=== PATIENT | female | born 1955 | race Hispanic/Latino ===

== ENCOUNTER 2022-08-28 14:32 | Emergency (ER) | payer BC, OTHER ==
[~2022-08-28] VITALS: Ht 167.6 cm; Wt 68.0 kg
[2022-08-28 15:06] VITALS: BP 138/74
[2022-08-28 16:33] LABS: BASOPHILS % (AUTO) 0.7 % (0.0-5.0); EOSINOPHILS % (AUTO) 1.2 % (0.0-8.0); HEMATOCRIT 34.5 % (36-48); LYMPHOCYTES % (AUTO) 23.4 % (21.0-51.0); MEAN CORPUSCULAR HEMOGLOBIN 29.7 pg (27.0-33.0); MEAN CORPUSCULAR HGB CONC 32.2 g/dL (32.0-36.0); MEAN CORPUSCULAR VOLUME 92.2 fL (79-99); MONOCYTES % (AUTO) 6.4 % (3.0-13.0); PLATELET COUNT (AUTO) 226 K/uL (130-400); RED BLOOD CELL COUNT(AUTO) 3.74 MIL/uL (4.00-5.50); RED CELL DISTRIBUTION WIDTH 13.8 % (11.0-15.5); WHITE BLOOD COUNT (AUTO) 7.6 K/uL (4.8-10.8)
[2022-08-28 16:49] LABS: ALBUMIN 3.9 g/dL (3.5-5.0); CREATININE 2.8 mg/dL (0.5-1.5); TOTAL PROTEIN, SERUM 8.4 g/dL (6.0-8.3)
[2022-08-28 16:53] LABS: POTASSIUM 2.8 mmol/L (3.5-5.1)
[2022-08-28] MEDS ORDERED: BENZONATATE 100 MG CAPSULE PO ONE (17:00)
[2022-08-28] MEDS ORDERED: ALBUTEROL 0.083% 2.5 MG/3 ML INH IH ONE (17:00)
[2022-08-28] MEDS ORDERED: POTASSIUM BICARB/CIT AC 25 MEQ TABLET.EFF PO ONE (17:00)
[2022-08-28 17:05] LABS: B-TYPE NATRIURETIC PEPTIDE 44 pg/mL (0-100)
[2022-08-28] MEDS ORDERED: [UNRECOGNIZED DRUG - OTHER] IV SCH (17:30)
[2022-08-28] MEDS ORDERED: FOLIC ACID IV SCH (17:30)
[2022-08-28] MEDS ORDERED: THIAMINE HCL IV SCH (17:30)
[2022-08-28] MEDS ORDERED: M V I IV SCH (17:30)
[2022-08-28] MEDS ORDERED: AUD IH (18:08)
[2022-08-28] MEDS ORDERED: BENZ-39 PO (18:08)
== END 2022-08-28 20:31 | disposition home or self-care (01) ==
LOC: EDH 14:32
DX: J20.8 Acute bronchitis due to other specified organisms (principal); E87.6 Hypokalemia; I10 Essential (primary) hypertension; Z85.3 Personal history of malignant neoplasm of breast; Z88.8 Allergy status to other drugs, medicaments and biological substances
CPT/HCPCS: 99285; 96365; 71045; 83735; 84484; 80053; 83880; 85025; 36415; 93005; 94640; J3411; J3490; J3480

== ENCOUNTER → 2024-03-08 | Outpatient (CLI) | payer OTHER ==
[~2024-03-08] MED LIST: AEC81 PO; AMLO2.5T4 PO; CHOL200074 PO; FOLI0.8T22 PO; LETR2.5T7 PO; OMEP40CA21 PO; ONDA-243 PO; PRAM0.129 PO; ROSU10TA72 PO
--- NOTE | 2024-03-08 10:59 | HMCIMG ---
CT CORONARY CALCIFICATION SCORING: Anatomic images were reviewed. The calcium score is being generated and reported separately. This report is for the visualized anatomy only. Visualized portions of the lungs are clear. Hilar and mediastinal structures appear normal. Osseous structures are unremarkable. Impression: 1. Negative noncardiac anatomic findings. 2. The calcium score is 1391.5 consistent with a large degree of calcified plaque. This is 99th percentile for a patient this age.+ CT was performed with one or more following dose reduction techniques: automated exposure control, adjustment of the mA and kv according to patient's size, or use of a iterative reconstruction technique.
== END | disposition home or self-care (01) ==
LOC: RAH 09:34
PROVIDERS: ATTEND Internal Medicine Interventional Cardiology
DX: Z13.6 Encounter for screening for cardiovascular disorders (principal)
CPT/HCPCS: 75571

== ENCOUNTER 2024-06-08 10:44 | Day surgery (SDC) | payer OTHER ==
[2024-06-06 14:26] LABS: BASOPHILS # (AUTO) 0.06 K/uL (0.00-0.20); BASOPHILS % (AUTO) 0.6 % (0.0-5.0); EOSINOPHILS # (AUTO) 0.12 K/uL (0.00-0.70); EOSINOPHILS % (AUTO) 1.3 % (0.0-8.0); HEMATOCRIT 40.6 % (36-48); IMMATURE GRANULOCYTE ABSOLUTE 0.03 K/uL (0-1); LYMPHOCYTES # (AUTO) 1.9 K/uL (1.0-4.8); LYMPHOCYTES % (AUTO) 20.8 % (21.0-51.0); MEAN CORPUSCULAR HEMOGLOBIN 29.9 pg (27.0-33.0); MEAN CORPUSCULAR VOLUME 93.3 fL (79-99); MONOCYTES # (AUTO) 0.5 K/uL (0.1-1.0); MONOCYTES % (AUTO) 5.8 % (3.0-13.0); NEUTROPHILS # (AUTO) 6.6 K/uL (1.8-7.7); NEUTROPHILS % (AUTO) 71.2 % (40.0-77.0); PLATELET COUNT (AUTO) 246 K/uL (130-400); RED BLOOD CELL COUNT(AUTO) 4.35 MIL/uL (4.00-5.50); RED CELL DISTRIBUTION WIDTH 14.3 % (11.0-15.5); WHITE BLOOD COUNT (AUTO) 9.3 K/uL (4.8-10.8)
[2024-06-06 14:27] VITALS: BP 156/84; PULSE 57; RESP 16; TEMP 97.9
[2024-06-06 14:39] LABS: INR 1.01 (0.85-1.15); PROTHROMBIN TIME 10.7 SEC (9.6-11.6)
[2024-06-06 14:40] LABS: PARTIAL THROMBOPLASTIN TIME 27.2 SEC (26.3-35.5)
[2024-06-06 14:58] LABS: CREATININE 1.5 mg/dL (0.5-1.0); POTASSIUM 3.4 mmol/L (3.5-5.1)
--- NOTE | 2024-06-06 15:04 | HMCIMG ---
Exam Type: CHEST 1VW Clinical Information: pre-op Comparison: None Findings: Right permacath noted in place. The lungs are clear of infiltrates. The heart is large in size. The bony and soft tissue structures of the chest are unremarkable. Large hiatal hernia projects behind the cardiac silhouette. Impression: Clear lungs.
[2024-06-06 15:15] LABS: B-TYPE NATRIURETIC PEPTIDE 30 pg/mL (0-100)
--- NOTE | 2024-06-06 15:57 | EKG ---
[facility] Test Date: 2024-06-06 Test Time: 14:13:18 Pat Name: MARYCARMEN MCCARTNEY Department[facility] Room: Gender: F Hog Raiser: [id number] : 1955 Requested By: EZE AGUILERA Order Number: [id number] Reading MD: Aly Esqueda Measurements Intervals Lynn Rate: 61 P: 39 NC: 144 QRS: 39 QRSD: 99 T: 68 QT: 430 QTc: 430 Interpretive Statements Sinus rhythm Atrial premature complex Compared to ECG 10/20/2023 14:07:06 Atrial premature complex(es) now present Sinus bradycardia no longer present Electronically Signed On 06-07-2024 23:29:06 CDT by Aly Esqueda Please click the below link to view image of tracing.
[~2024-06-08] VITALS: Ht 167.6 cm; Wt 74.1 kg
[~2024-06-08 10:44] MED LIST changes: +ALBU2.5V2 IH; +ALBU90AE IH; -LETR2.5T7 PO; -ONDA-243 PO; -PRAM0.129 PO; -ROSU10TA72 PO; +ROSU20TA98 PO
[2024-06-08 10:55] VITALS: BP 152/88; PULSE 68; RESP 16; TEMP 98.1
[2024-06-08] MEDS: 0.9%NACL 1000ML 1,000 ML IV SCH (11:26)
[2024-06-08] MEDS ORDERED: HEParin-NS 1,000 UNIT/500 ML 500 ML IV ONE (12:37)
[2024-06-08] MEDS ORDERED: LIDOCAINE HCL 400MG/20ML VIAL ONE (12:37)
[2024-06-08] MEDS ORDERED: FENTanyl CITRate PF 50 MCG/1 ML 2ML VIAL ONE (14:05)
[2024-06-08] MEDS ORDERED: MIDAZOLAM HCL 1 MG/ML 2ML VIAL ONE (14:05)
[2024-06-08 14:20] VITALS: BP 172/80; PULSE 56; RESP 11; TEMP 97.4
--- NOTE | 2024-06-08 14:20 | NUR ---
DRESSING: DRESSING TO LEFT LOWER CHEST DRY/INTACT WITH NO ACTIVE BLEEDING PRESENT. NO REDNESS/SWELLING NOTED TO SURROUNDING AREA.
[2024-06-08 14:35] VITALS: BP 168/88; PULSE 68; RESP 14
[2024-06-08 14:50] VITALS: BP 179/100; PULSE 64; RESP 13
--- NOTE | 2024-06-08 14:51 | PR ---
PROCEDURE: Removal of implantable loop recorder. INDICATIONS: This is a 68-year-old woman who has a history of dysrhythmia, she had an implantable loop recorder placed for further evaluation. The device has reached end of life parameters and has been removed at this time. She has no further problems with dysrhythmia and will not be replaced. DESCRIPTION OF PROCEDURE: After informed consent was done, the patient was prepped and draped in the usual fashion. The device was found to be quite deep. It was identified with fluoroscopic guidance. Once located, incision was made at the proximal end of the device. Blunt dissection was carried down to device. Device was grabbed with forceps and removed in its entirety without further difficulty. The wound was then sealed using no stitch technique with sealant. The patient tolerated the procedure well. There were no complications. TID: [id number] RECEIPT: [id number]
[2024-06-08 15:05] VITALS: BP 180/90; PULSE 64; RESP 14; TEMP 97.4
--- NOTE | 2024-06-08 15:05 | NUR ---
dressing: dressing to left lower chest remained dry/intact with no active bleeding present. no redness/swelling noted to surrounding area .
== END 2024-06-08 15:07 | disposition home or self-care (01) ==
LOC: DAH 10:44
PROVIDERS: ATTEND Internal Medicine Interventional Cardiology
DX: Z45.09 Encounter for adjustment and management of other cardiac device (principal); R94.39 Abnormal result of other cardiovascular function study; R00.0 Tachycardia, unspecified; I10 Essential (primary) hypertension; I35.0 Nonrheumatic aortic (valve) stenosis; I65.29 Occlusion and stenosis of unspecified carotid artery; I25.10 Atherosclerotic heart disease of native coronary artery without angina pectoris; E78.2 Mixed hyperlipidemia; G60.8 Other hereditary and idiopathic neuropathies; E66.9 Obesity, unspecified; M79.661 Pain in right lower leg; M79.662 Pain in left lower leg; Z95.818 Presence of other cardiac implants and grafts; Z71.3 Dietary counseling and surveillance; Z71.82 Exercise counseling; Z68.26 Body mass index [BMI] 26.0-26.9, adult; Z79.899 Other long term (current) drug therapy; Z79.82 Long term (current) use of aspirin; Z88.8 Allergy status to other drugs, medicaments and biological substances
CPT/HCPCS: 71045; 80048; 83880; 85025; 85610; 85730; 36415; 93005; 33286; J3010; J3490; J7030; J2250; J1644; A4215; A4222; A4221; A4663; A4216; A4606; A4223 ×3; 99156; 99157

== ENCOUNTER 2024-11-03 07:32 | Day surgery (SDC) | payer OTHER ==
[2024-11-03] VITALS (11 sets, daily range): BP systolic 132–163; BP diastolic 57–98; PULSE 61–90; RESP 16–20; TEMP 97.5–97.9
[~2024-11-03] VITALS: Ht 167.6 cm; Wt 76.7 kg
[2024-11-03] MEDS ORDERED: BACL10TA PO (09:18)
[2024-11-03] MEDS ORDERED: DICY20TA3 PO (09:19)
[2024-11-03] MEDS: 0.9%NACL 1000ML 1,000 ML IV ONE (09:23)
== END 2024-11-03 11:10 | disposition home or self-care (01) ==
LOC: DAH 07:32 → ENDO 07:32
PROVIDERS: ATTEND Surgery
DX: K30 Functional dyspepsia (principal); K31.7 Polyp of stomach and duodenum; K22.89 Other specified disease of esophagus; K44.9 Diaphragmatic hernia without obstruction or gangrene; K80.20 Calculus of gallbladder without cholecystitis without obstruction; E78.5 Hyperlipidemia, unspecified; I11.0 Hypertensive heart disease with heart failure; I50.9 Heart failure, unspecified; K21.9 Gastro-esophageal reflux disease without esophagitis; Z85.3 Personal history of malignant neoplasm of breast; Z88.8 Allergy status to other drugs, medicaments and biological substances; Z79.82 Long term (current) use of aspirin; Z86.0100 Personal history of colon polyps, unspecified; Z79.899 Other long term (current) drug therapy
CPT/HCPCS: 43251; J7030; J2704; A4620; A4215 ×2; A4223; A4222; A4221; A4663; A4606; J3490

== ENCOUNTER → 2025-03-08 | Outpatient (CLI) | payer OTHER ==
[~2025-03-08] MED LIST changes: -AEC81 PO; +BACL10TA PO; -CHOL200074 PO; +DICY20TA3 PO; -FOLI0.8T22 PO
--- NOTE | 2025-03-08 12:19 | HMCIMG ---
DOUBLE CONTRAST UPPER GI SERIES: Clinical history diaphragmatic hernia. Patient has history of hernia repair 1 year ago and surgery has since comment undergone Finding: The study was performed using provocative maneuvers After swallowing effervescent crystal and thick barium, there is no definite intrinsic or extrinsic lesion seen in the esophagus. There is moderate to large paraesophageal hiatal hernia with grade 1 esophageal reflux. The stomach is normal in size, shape, and configuration. The rugal folds appear to be normal. The duodenal bulb, duodenal sweep, and upper jejunum appear to be normal. There is a right-sided Port-A-Cath with tip in superior vena cava. Fluoroscopy time: 0.8 minutes. IMPRESSION: Moderately large paraesophageal hiatal hernia with grade 1 esophageal reflux. Otherwise NORMAL DOUBLE CONTRAST UPPER GI SERIES.
== END | disposition home or self-care (01) ==
LOC: RAH 08:58
PROVIDERS: ATTEND Surgery
DX: K21.9 Gastro-esophageal reflux disease without esophagitis (principal); K44.9 Diaphragmatic hernia without obstruction or gangrene; K80.20 Calculus of gallbladder without cholecystitis without obstruction
CPT/HCPCS: 74240